=== PATIENT | female | born 1955 | race Caucasian/White ===

== ENCOUNTER 2017-12-01 07:04 | Outpatient (CLI) ==
--- NOTE | 2017-12-01 08:22 | DI ---
EXAM: Six views of the cervical spine. History: Cervical neck pain. Comparison: Cervical spine radiograph 11/02/2016 Findings: No acute fracture or subluxation of the cervical spine. Reversal of the normal cervical l ordosis. Moderate disc space narrowing again seen at C5-6 with endplate sclerosis and osteophyte for mation. Disc space heights are otherwise relatively preserved. No prevertebral soft tissue swelling . Predental space is not widened. The oblique images demonstrate no significant bony neural foramin al narrowing. Impression: 1. No acute osseous abnormality of the cervical spine. 2. Moderate degenerative disc disease at C5-6 is not significantly changed. 3. Reversal of the normal cervical lordosis
== END 2017-12-01 07:05 | disposition home or self-care (01) ==
LOC: RAD 07:04
PROVIDERS: ATTEND Physician Assistant
DX: E87.6 Hypokalemia (principal); M25.50 Pain in unspecified joint; R53.83 Other fatigue; R76.8 Other specified abnormal immunological findings in serum; M54.2 Cervicalgia
CPT/HCPCS: 36415; 80048; 80053; 80074; 86803